=== PATIENT | male | born 1930 | race Caucasian/White ===

== ENCOUNTER → 2016-09-06 | Outpatient (CLI) | payer OTHER, MEDICARE | LOC: BHFA 10:45 | PROVIDERS: ATTEND Internal Medicine | DX: I25.10 Atherosclerotic heart disease of native coronary artery without angina pectoris (principal) ==

== ENCOUNTER → 2016-09-17 | Outpatient (CLI) | payer OTHER, MEDICARE | LOC: FIMAGING 10:08 | PROVIDERS: ATTEND Internal Medicine | DX: N18.3 Chronic kidney disease, stage 3 (moderate) (principal) ==

== ENCOUNTER 2017-07-04 18:34 | Inpatient (IN) | payer OTHER, MEDICARE ==
--- NOTE | 2017-07-04 18:59 | EDPHY ---
H & P Time Seen by Provider: 07/04/17 18:46 HPI/ROS: CHIEF COMPLAINT: "He was loopy" HISTORY OF PRESENT ILLNESS: Patient was brought in by his for being confused. Yesterday started with a cough and then was incontinent several times last night. He was confused and did not know where he was. Symptoms moderate. Remainder of history is limited because of the patient's poor recollection of the events of the last 24 hr although he denies any complaints currently. REVIEW OF SYSTEMS: Eye: no change in vision ENT: no sore throat Cardiac: no chest pain or syncope Pulmonary: Cough but not short of breath and no hemoptysis or sputum production Abdomen: no vomiting, diarrhea, or abdominal pain Musculoskeletal: no back pain Skin: no rash Neuro: no headache Constitutional: Fever per the : Urinary incontinence, chronic A comprehensive 10 point review of systems is otherwise not possible to obtain because of the patient's mental status. PAST MEDICAL HISTORY: Includes cardiac bypass, high cholesterol, hypertension, renal insufficiency. Social history: , here with his General Appearance: Alert and conversant, cooperative. Poor recent memory. Eyes: No scleral icterus. ENT, Mouth: Normal mucous membranes. Respiratory: Normal respiratory effort, breath sounds equal, lungs are clear to auscultation. Cardiovascular: Regular rate and rhythm. Gastrointestinal: Abdomen is soft and non tender. Neurological: Alert, face symmetric, normal motor and sensory in extremities. Patient knows his date and hold he is. He knows where he is. He does not remember the events very well of the last 24 hr. Follows commands. Skin: No urticaria or petechiae or purpura. Musculoskeletal: Neck supple, no meningeal signs. Psychiatric: Not agitated. Emergency Department course/MDM: Temp 37.9 degrees, high suspicion for UTI or pneumonia. Plan for blood cultures and lactate, urinalysis, chest x-ray. 1946: Chest x-ray personally interpreted shows left lower lobe infiltrate probable pneumonia. Results discussed with the patient and his , not hospitalized last 3 months , admission for IV antibiotics and has elevated INR but is on Coumadin so does not qualify as severe sepsis or septic shock. Smoking Status: Never smoked Constitutional: Initial Vital Signs Temperature (C) 37.9 C 07/04/17 18:41 Heart Rate 81 07/04/17 18:41 Respiratory Rate 18 07/04/17 18:41 Blood Pressure 172/75 H 07/04/17 18:41 O2 Sat (%) 92 07/04/17 18:41 O2 Delivery Mode Room Air Allergies/Adverse Reactions: No Known Allergies Allergy (Verified 07/04/17 18:40) Home Medications: Medication Instructions Recorded Atorvastatin Calcium [Lipitor 40 40 mg PO HS 12/22/08 mg (*)] Herbals/Supplements -Info Only 1 ea PO DAILY 05/23/14 Aspirin EC [Aspirin EC 81 mg (*)] 81 mg PO DAILY 11/29/14 Propylene Glycol/Peg 400/Pf 1 drop EACHEYE PRN PRN 11/29/14 [Systane 0.3-0.4% Eye Drops] Metoprolol Tartrate [Lopressor 25 25 mg PO BID #60 tab 11/30/14 mg (*)] Lisinopril [Zestril 10 mg (*)] 30 mg PO DAILY 12/23/15 Warfarin Sodium [Coumadin 5MG (*)] 5 mg PO SUMOTUWETHFR@20 12/23/15 Warfarin Sodium [Coumadin 5MG (*)] 2.5 mg PO SA@20 07/04/17 Medical Decision Making - Diagnostics Imaging Results: Imaging Impressions Chest X-Ray 07/04/17 19:09 Impression: Moderate left pleural effusion. Atelectasis or infiltrate left lower lobe. Other chronic findings, as above, are stable. Imaging: I viewed and interpreted images myself Differential Diagnosis: Differential diagnosis considered for altered mental status including but not limited to hypoglycemia, infectious process, electrolyte abnormality, head injury and intoxicants. Consult/Admit Bed Type: [place] [id number] - Data Points Laboratory Results: Laboratory Results 07/04/17 18:55 07/04/17 18:55 07/04/17 07/04/17 07/04/17 19:25 19:25 18:55 WBC RBC Hgb Hct MCV MCH MCHC RDW Plt Count MPV Neut % (Auto) Lymph % (Auto) [place] % (Auto) Eos % (Auto) Baso % (Auto) Nucleat RBC Rel Count Absolute Neuts (auto) Absolute Lymphs (auto) Absolute Monos (auto) Absolute Eos (auto) Absolute Basos (auto) Absolute Nucleated RBC Immature Gran % Immature Gran # PT INR APTT VBG Lactic Acid Sodium Potassium Chloride Carbon Dioxide Anion Gap BUN Creatinine Estimated GFR Glucose Calcium Total Bilirubin Lactate Dehydrogenase 542 IU/L IU/L (313-618) Urine Color YELLOW Urine Appearance CLEAR Urine pH 6.0 (5.0-7.5) Ur Specific [place] 1.013 (1.002-1.030) Urine Protein 2+ H (NEGATIVE) Urine Ketones NEGATIVE (NEGATIVE) Urine Blood 1+ H (NEGATIVE) Urine Nitrate NEGATIVE (NEGATIVE) Urine Bilirubin NEGATIVE (NEGATIVE) Urine Urobilinogen NEGATIVE EU EU (0.2-1.0) Ur Leukocyte Esterase NEGATIVE (NEGATIVE) Urine RBC 1-3 /hpf /hpf (0-3) Urine WBC 1-3 /hpf /hpf (0-3) Ur Epithelial Cells NONE SEEN /lpf /lpf (NONE-1+) Urine Mucus TRACE /lpf /lpf (NONE-1+) Urine Glucose NEGATIVE (NEGATIVE) Ur Strep pneumoniae Ag Pending 07/04/17 07/04/17 07/04/17 18:55 18:55 18:55 WBC 9.61 10^3/uL H 10^3/uL (3.80-9.50) RBC 4.89 10^6/uL 10^6/uL (4.40-6.38) Hgb 15.2 g/dL g/dL (13.7-17.5) Hct 44.8 % % (40.0-51.0) MCV 91.6 fL fL (81.5-99.8) MCH 31.1 pg pg (27.9-34.1) MCHC 33.9 g/dL g/dL (32.4-36.7) RDW 13.0 % % (11.5-15.2) Plt Count 182 10^3/uL 10^3/uL (150-400) MPV 9.1 fL fL (8.7-11.7) Neut % (Auto) 65.4 % % (39.3-74.2) Lymph % (Auto) 17.2 % % (15.0-45.0) [place] % (Auto) 13.8 % H % (4.5-13.0) Eos % (Auto) 2.6 % % (0.6-7.6) Baso % (Auto) 0.6 % % (0.3-1.7) Nucleat RBC Rel Count 0.0 % % (0.0-0.2) Absolute Neuts (auto) 6.28 10^3/uL 10^3/uL (1.70-6.50) Absolute Lymphs (auto) 1.65 10^3/uL 10^3/uL (1.00-3.00) Absolute Monos (auto) 1.33 10^3/uL H 10^3/uL (0.30-0.80) Absolute Eos (auto) 0.25 10^3/uL 10^3/uL (0.03-0.40) Absolute Basos (auto) 0.06 10^3/uL 10^3/uL (0.02-0.10) Absolute Nucleated RBC 0.00 10^3/uL 10^3/uL (0-0.01) Immature Gran % 0.4 % % (0.0-1.1) Immature Gran # 0.04 10^3/uL 10^3/uL (0.00-0.10) PT 20.6 SEC H SEC (12.0-15.0) INR 1.76 H (0.83-1.16) APTT 39.5 SEC H SEC (23.0-38.0) VBG Lactic Acid 1.1 mmol/L mmol/L (0.7-2.1) Sodium Potassium Chloride Carbon Dioxide Anion Gap BUN Creatinine Estimated GFR Glucose Calcium Total Bilirubin Lactate Dehydrogenase Urine Color Urine Appearance Urine pH Ur Specific [place] Urine Protein Urine Ketones Urine Blood Urine Nitrate Urine Bilirubin Urine Urobilinogen Ur Leukocyte Esterase Urine RBC Urine WBC Ur Epithelial Cells Urine Mucus Urine Glucose Ur Strep pneumoniae Ag 07/04/17 18:55 WBC RBC Hgb Hct MCV MCH MCHC RDW Plt Count MPV Neut % (Auto) Lymph % (Auto) [place] % (Auto) Eos % (Auto) Baso % (Auto) Nucleat RBC Rel Count Absolute Neuts (auto) Absolute Lymphs (auto) Absolute Monos (auto) Absolute Eos (auto) Absolute Basos (auto) Absolute Nucleated RBC Immature Gran % Immature Gran # PT INR APTT VBG Lactic Acid Sodium 139 mEq/L mEq/L (135-145) Potassium 3.7 mEq/L mEq/L (3.3-5.0) Chloride 100 mEq/L mEq/L (97-110) Carbon Dioxide 29 mEq/l mEq/l (22-31) Anion Gap 10 mEq/L mEq/L (8-16) BUN 14 mg/dL mg/dL (7-23) Creatinine 1.3 mg/dL mg/dL (0.7-1.3) Estimated GFR 52 Glucose 101 mg/dL H mg/dL (70-100) Calcium 8.9 mg/dL mg/dL (8.5-10.4) Total Bilirubin 0.9 mg/dL mg/dL (0.1-1.4) Lactate Dehydrogenase Urine Color Urine Appearance Urine pH Ur Specific [place] Urine Protein Urine Ketones Urine Blood Urine Nitrate Urine Bilirubin Urine Urobilinogen Ur Leukocyte Esterase Urine RBC Urine WBC Ur Epithelial Cells Urine Mucus Urine Glucose Ur Strep pneumoniae Ag Medications Given: Azithromycin 500 mg/ Sodium (Chloride) 255 mls @ 255 mls/hr IV DAILY GOLD PRN Reason: Protocol Stop: 08/04/17 08:59 Last Admin: 07/04/17 21:15 Dose: 255 mls Discontinued Medications Ceftriaxone Sodium/Dextrose (Rocephin 1 Gm (Premix)) 50 mls @ 100 mls/hr IV EDNOW ONE PRN Reason: Protocol Stop: 07/04/17 20:45 Last Admin: 07/04/17 20:47 Dose: 50 mls Sodium Chloride (Ns) 1,000 mls @ 0 mls/hr IV EDNOW ONE; Wide Open PRN Reason: Protocol Stop: 07/04/17 20:17 Last Admin: 07/04/17 20:47 Dose: 1,000 mls Departure - Departure Disposition: [facility] Inpatient Acute Clinical Impression: Pneumonia Qualifiers: Pneumonia type: due to unspecified organism Laterality: left Lung location: lower lobe of lung Qualified Code(s): J18.1 - Lobar pneumonia, unspecified organism Condition: Good
[2017-07-04 19:20] LABS: PLATELET COUNT 182 10^3/uL (150-400)
[2017-07-04 19:36] LABS: INR 1.76 (0.83-1.16); PROTIME(PATIENT) 20.6 SEC (12.0-15.0)
[2017-07-04] MEDS ORDERED: WARFARIN SODIUM 5 MG TAB PO SCH (20:00)
[2017-07-04] MEDS ORDERED: NS 1,000 ML IV ONE (20:16)
[2017-07-04] MEDS ORDERED: AZITHROMYCIN IV 500 MG in D5W 250 ML IV ONE (20:16)
[2017-07-04] MEDS ORDERED: ONDANSETRON 4 MG/2 ML VIAL IVP PRN (20:47)
[2017-07-04] MEDS ORDERED: ONDANSETRON DISINTEGRATING 4 MG TAB PO PRN (20:47)
[2017-07-04] MEDS ORDERED: ACETAMINOPHEN 325 MG TAB PO PRN (20:47)
[2017-07-04] MEDS ORDERED: NS W/ 20 KCl/L 1,000 ML IV SCH (21:00)
[2017-07-04] MEDS: AZITHROMYCIN IV 500 MG in NS 250 ML IV SCH (21:15)
[2017-07-04] MEDS ORDERED: PEG EACHEYE PRN ×2 (21:25→22:03)
[2017-07-04] MEDS ORDERED: PROPYLENE GLYCOL EACHEYE PRN ×2 (21:25→22:03)
[2017-07-04] MEDS ORDERED: [UNRECOGNIZED DRUG - OTHER] EACHEYE PRN ×2 (21:25→22:03)
--- NOTE | 2017-07-04 21:27 | PDGENHP ---
History and Physical - Chief Complaint Acute encephalopathy - History of Present Illness Primary marketing finance manager: Dr. Paul Arshad HPI: 86-year-old male presenting with acute encephalopathy characterized as confusion, disorientation with associated nonproductive cough, subjective fever , visible chills, urinary incontinence and generalized weakness. Onset of symptoms was approximately 24 hr ago and duration has been persistent thereafter. Majority the symptoms were reported by the patient's , as he has poor recognition and insight into them at this time. The patient reports he has otherwise been taking all of his home medications, is unclear whether the patient is physically able to complete his activities of daily living at this time. The patient was brought to the hospital by his , and the patient reports that he is aware that some of his confusion is somewhat improved after receiving IV antibiotics in the emergency department. History Information - Allergies/Home Medication List Allergies/Adverse Reactions: No Known Allergies Allergy (Verified 07/04/17 18:40) Home Medications: Atorvastatin Calcium [Lipitor 40 mg (*)] 40 mg PO HS 12/22/08 [Last Taken 21:00] Herbals/Supplements -Info Only 1 ea PO DAILY 05/23/14 [Last Taken 11/28/14] Aspirin EC [Aspirin EC 81 mg (*)] 81 mg PO DAILY 11/29/14 [Last Taken 07/04/17 10:00] Propylene Glycol/Peg 400/Pf [Systane 0.3-0.4% Eye Drops] 1 drop EACHEYE PRN PRN 11/29/14 [Last Taken Unknown] Lisinopril [Zestril 10 mg (*)] 30 mg PO DAILY 12/23/15 [Last Taken 07/04/17 10: 00] Warfarin Sodium [Coumadin 5MG (*)] 5 mg PO SUMOTUWETHFR@20 12/23/15 [Last Taken 07/03/17 20:00] Warfarin Sodium [Coumadin 5MG (*)] 2.5 mg PO SA@20 07/04/17 [Last Taken 07/02/17 ] I have personally reviewed and updated: family history, medical history, social history, surgical history - Past Medical History atrial fibrillation, coronary artery disease (Status post stents and CABG) Additional medical history: Obstructive sleep apnea with CPAP at night. Small- bowel obstruction. Hypertension. Hyperlipidemia. Chronic kidney disease stage 3 with baseline creatinine 1.3. Previous episodes of acute encephalopathy in setting of dehydration - Surgical History Additional surgical history: CABG May 2014. Lysis of adhesions - Family History Additional family history: No family history of neurologic disorders - Social History Smoking Status: Never smoked Alcohol Use: Rarely Drug Use: None Additional social history: Lives independently at home with Review of Systems Review of Systems: ROS: 10pt was reviewed & negative except for what was stated in HPI & below Constitutional: Reports: chills, fever, weakness Respiratory: Reports: cough Genitourinary: Reports: incontinence Neurological: Reports: other (Confusion, disorientation) Physical Exam Physical Exam: Temp Pulse Resp BP Pulse Ox 37.9 C 81 18 172/75 H 92 07/04/17 18:41 07/04/17 18:41 07/04/17 18:41 07/04/17 18:41 07/04/17 18:41 Constitutional: no apparent distress, appears nourished, not in pain Eyes: PERRL, EOMI, scleral injection Ears, Nose, Mouth, Throat: moist mucous membranes, hearing normal, ears appear normal, no oral mucosal ulcers Cardiovascular: systolic murmur (1/6 at apex), edema (Trace bilateral lower extremity edema), No irregularly irregular, No tachycardia Respiratory: reduced air movement (Left base), aegophony (Left base), No expiratory wheeze, No inspiratory crackles, No bronchial breath sounds, No respiratory distress, No rhonchi Gastrointestinal: normoactive bowel sounds, soft, non-tender abdomen, no palpable masses, No distension Skin: warm, No abrasion, No rash Neurologic: sensation intact bilaterally, CN II-XII Intact, other (Alert awake oriented x2, to person and time only), No weakness (Motor strength 5/5 bilateral lower extremities), No facial droop Psychiatric: not anxious, flat affect, other (Concentration 7/7 with some delayed cognition but appropriate), No agitated Lab Data & Imaging Review 07/04/17 18:55 07/04/17 18:55 WBC 9.61 10^3/uL (3.80-9.50) H 07/04/17 18:55 RBC 4.89 10^6/uL (4.40-6.38) 07/04/17 18:55 Hgb 15.2 g/dL (13.7-17.5) 07/04/17 18:55 Hct 44.8 % (40.0-51.0) 07/04/17 18:55 MCV 91.6 fL (81.5-99.8) 07/04/17 18:55 MCH 31.1 pg (27.9-34.1) 07/04/17 18:55 MCHC 33.9 g/dL (32.4-36.7) 07/04/17 18:55 RDW 13.0 % (11.5-15.2) 07/04/17 18:55 Plt Count 182 10^3/uL (150-400) 07/04/17 18:55 MPV 9.1 fL (8.7-11.7) 07/04/17 18:55 Neut % (Auto) 65.4 % (39.3-74.2) 07/04/17 18:55 Lymph % (Auto) 17.2 % (15.0-45.0) 07/04/17 18:55 [place] % (Auto) 13.8 % (4.5-13.0) H 07/04/17 18:55 Eos % (Auto) 2.6 % (0.6-7.6) 07/04/17 18:55 Baso % (Auto) 0.6 % (0.3-1.7) 07/04/17 18:55 Nucleat RBC Rel Count 0.0 % (0.0-0.2) 07/04/17 18:55 Absolute Neuts (auto) 6.28 10^3/uL (1.70-6.50) 07/04/17 18:55 Absolute Lymphs (auto) 1.65 10^3/uL (1.00-3.00) 07/04/17 18:55 Absolute Monos (auto) 1.33 10^3/uL (0.30-0.80) H 07/04/17 18:55 Absolute Eos (auto) 0.25 10^3/uL (0.03-0.40) 07/04/17 18:55 Absolute Basos (auto) 0.06 10^3/uL (0.02-0.10) 07/04/17 18:55 Absolute Nucleated RBC 0.00 10^3/uL (0-0.01) 07/04/17 18:55 Immature Gran % 0.4 % (0.0-1.1) 07/04/17 18:55 Immature Gran # 0.04 10^3/uL (0.00-0.10) 07/04/17 18:55 PT 20.6 SEC (12.0-15.0) H 07/04/17 18:55 INR 1.76 (0.83-1.16) H 07/04/17 18:55 APTT 39.5 SEC (23.0-38.0) H 07/04/17 18:55 VBG Lactic Acid 1.1 mmol/L (0.7-2.1) 07/04/17 18:55 Sodium 139 mEq/L (135-145) 07/04/17 18:55 Potassium 3.7 mEq/L (3.3-5.0) 07/04/17 18:55 Chloride 100 mEq/L (97-110) 07/04/17 18:55 Carbon Dioxide 29 mEq/l (22-31) 07/04/17 18:55 Anion Gap 10 mEq/L (8-16) 07/04/17 18:55 BUN 14 mg/dL (7-23) 07/04/17 18:55 Creatinine 1.3 mg/dL (0.7-1.3) 07/04/17 18:55 Estimated GFR 52 07/04/17 18:55 Glucose 101 mg/dL (70-100) H 07/04/17 18:55 Calcium 8.9 mg/dL (8.5-10.4) 07/04/17 18:55 Total Bilirubin 0.9 mg/dL (0.1-1.4) 07/04/17 18:55 Lactate Dehydrogenase 542 IU/L (313-618) 07/04/17 18:55 Urine Color YELLOW 07/04/17 19:25 Urine Appearance CLEAR 07/04/17 19:25 Urine pH 6.0 (5.0-7.5) 07/04/17 19:25 Ur Specific [place] 1.013 (1.002-1.030) 07/04/17 19:25 Urine Protein 2+ (NEGATIVE) H 07/04/17 19:25 Urine Ketones NEGATIVE (NEGATIVE) 07/04/17 19:25 Urine Blood 1+ (NEGATIVE) H 07/04/17 19:25 Urine Nitrate NEGATIVE (NEGATIVE) 07/04/17 19:25 Urine Bilirubin NEGATIVE (NEGATIVE) 07/04/17 19:25 Urine Urobilinogen NEGATIVE EU (0.2-1.0) 07/04/17 19:25 Ur Leukocyte Esterase NEGATIVE (NEGATIVE) 07/04/17 19:25 Urine RBC 1-3 /hpf (0-3) 07/04/17 19:25 Urine WBC 1-3 /hpf (0-3) 07/04/17 19:25 Ur Epithelial Cells NONE SEEN /lpf (NONE-1+) 07/04/17 19:25 Urine Mucus TRACE /lpf (NONE-1+) 07/04/17 19:25 Urine Glucose NEGATIVE (NEGATIVE) 07/04/17 19:25 Visualized and Interpreted Chest x-ray results: Yes Chest X-Ray results: other (Left lower lobe airspace disease and markedly effusion, new from chest x-ray performed 2 and half years ago) Assessment & Plan Assessment: 86-year-old male presenting with acute encephalopathy in the setting of suspected left lower lobe pneumonia and parapneumonic pleural effusion Plan: 1. Acute encephalopathy. Evidenced by global brain dysfunction characterized as confusion, disorientation, both of which are an acute change from his baseline and/or the reason that the patient's brought him to medical attention, most likely secondary to the toxic effects of infection -reviewed outside records including 12/24/2015 discharge summary by Susan Rubio , reports the patient experienced acute encephalopathy in the setting of dehydration, he underwent an MRI which demonstrated no structural brain disease and neurology was consulted who felt like his mental status changes were secondary to metabolic effects of dehydration -get CREW PERSON cognitive eval -gauge patient's ability to complete activities of daily living and determine whether he will require detention facility placement after resolution of his infection -melatonin at bedtime 2. Suspected left lower lobe pneumonia. Acute, new problem this provider, further workup indicated. Evidenced by new airspace disease on chest x-ray with subjective fever, chills, cough, mental status changes -discussed with Dr. Jarrod Pool in the emergency department, we agreed to empirically treat him for community-acquired pneumonia with IV ceftriaxone and azithromycin, continue -given that the patient has an acute left lower lobe pleural effusion, will get thoracentesis to evaluate for empyema versus parapneumonic effusion with diagnostic studies to be sent -sputum cultures, urine strep, blood cultures, procalcitonin level -if his thoracentesis demonstrates no evidence of infection and his effusion is more transudative, then would recommend repeating his echocardiogram, as his past echo demonstrates diastolic dysfunction, ejection fraction of 55-60% but he does have a known history of AFib and CAD and is at risk for CHF 3. Chronic kidney disease stage 3. Creatinine level currently at baseline, continue to monitor 4. Coronary artery disease. Chronic, continue home medications once reconciled -continue holding aspirin until after thoracentesis 5. Atrial fibrillation. Unclear type, continue home medications once reconciled -continue holding Coumadin until after thoracentesis -monitor daily INR Diet. Cardiac Prophylaxis. High risk patient, SCDs until resuming Coumadin Code. Full per patient, his is MD POA Disposition. Anticipated discharge uncertain this time, anticipated length stay is greater than 48 hr for reasonable medical necessity including new pneumonia with new pleural effusion requiring a diagnostic workup and drainage.
[2017-07-04] MEDS: METOPROLOL TARTRATE 25 MG TAB PO SCH (22:17)
[2017-07-05 05:27] LABS: PLATELET COUNT 149 10^3/uL (150-400)
--- NOTE | 2017-07-05 07:45 | PDMN ---
Medical Necessity Medical necessity: Pt meets IP criteria per MD; est los >2 mn for eval/tx of suspected pneumonia & pleural effusion w/acute encephalopathy & weakness; admit for diagnostic workup, drainage, further monitoring, IV abx, IVFs & therapies; hx AFIB on AC, CAD s/p stents & CABG, CKD, HTN & PEGGY; per H&P & order 07/04/17
[2017-07-05] MEDS ORDERED: Herbals/Supplements -Info Only PO SCH (09:00)
[2017-07-05 09:28] LABS: INR 1.98 (0.83-1.16); PROTIME(PATIENT) 22.6 SEC (12.0-15.0)
[2017-07-05] MEDS: METOPROLOL TARTRATE 25 MG TAB PO SCH ×2 (10:30→21:17)
[2017-07-05] MEDS: LISINOPRIL 10 MG TAB PO SCH (10:30)
[2017-07-05] MEDS ORDERED: LIDOCAINE 1% 300 MG/30 ML SDV ONE (11:07)
[2017-07-05] MEDS: AZITHROMYCIN IV 500 MG in NS 250 ML IV SCH (13:26)
--- NOTE | 2017-07-05 15:46 | HOSPPROG ---
Hospitalist Progress Note Assessment/Plan: 86 yo M with PMH of CAD s/p multiple stents and CABG admitted with sob/cough/ ams in setting of moderate pleural effusion # pleural effusion: exudative by Light's criteria and noted to have significant amount of old blood on thoracentesis, gram stain negative. No hx of trauma however patient is on chronic anticoagulation and was quite confused on arrival with hx of being very weak--will discuss if fall occurred further with . Pleural fluid culture and cytology pending. Will dc abx as this does not seem likely to be infectious, will get repeat CXR in am to eval for recurrence. # acute encephalopathy: this seems to have largely resolved overnight but patient still has memory issues and suspect a baseline component of mild dementia, likely worsened mental status yesterday related to above # CAD: with hx of multiple PCI in the past as well as CABG, followed by Dr. Arshad and recently underwent echo/stress test--this was notable for preserved EF of 64% and a small area of reversible ischemia versus artifact, on f/u this was not planned to be intervened upon # ckd: this is at baseline # p a fib: appears in SR by exam, continue metoprolol, holding warfarin given above # dispo: IP status, will likely be ready to dc in next 1-2 days Patient new to my care. Old records reviewed and summarized as above. Subjective: no significant overnight events, patient currently feeling well per his report, states he has a cough still Objective: Vital Signs Temp Pulse Resp BP Pulse Ox 37.3 C 63 17 135/65 H 90 L 07/05/17 07:56 07/05/17 07:56 07/05/17 07:56 07/05/17 07:56 07/05/17 07:56 Microbiology 07/05/17 11:45 Gram Stain - Final Thoracic Fluid - Aspirate 07/05/17 07:30 - Final Sputum, Expectorated Laboratory Results 07/05/17 04:25 07/05/17 04:25 07/04/17 07/05/17 07/06/17 05:59 05:59 05:59 Intake Total 956 Balance 956 PT 22.6 SEC (12.0-15.0) H 07/05/17 08:30 INR 1.98 (0.83-1.16) H 05/15/18 08:30 awake alert nad anicteric op clear rrr systolic murmur bibasilar rales r > l, normal wob, saturations in 90s on RA soft nt nd no cce warm dry well perfused oriented memory poor ICD10 Worksheet Patient Problems: Problems Problem Status Onset Pneumonia Acute Coronary arteriosclerosis Acute Dehydration Acute TIA (transient ischemic attack) Acute
--- NOTE | 2017-07-05 17:15 | ASMTCMCOM ---
CM Note CM Note Notes: Patient admitted with encephalopathy and URI symtoms. He's being treated for community-acquired PNA and will undergo thoracentesis to evaluate for empyema. He is followed by Dr Arshad. Patient lives at home with . He is normally independent. I spoke with them about home care; they do not think he'll need it but are amenable if we suggest it. Case Management will follow. Date Signed: 07/05/2017 11:07 AM Electronically Signed By:Isa Chi RN
[2017-07-05] MEDS ORDERED: hydrALAZINE 20 MG/ML VIAL IVP PRN (17:40)
[2017-07-05] MEDS: ATORVASTATIN CALCIUM 40 MG TAB PO SCH (21:18)
[2017-07-06 05:32] LABS: INR 1.91 (0.83-1.16)
[2017-07-06] MEDS: LISINOPRIL 10 MG TAB PO SCH (10:13)
[2017-07-06] MEDS: METOPROLOL TARTRATE 25 MG TAB PO SCH ×2 (10:14→20:17)
--- NOTE | 2017-07-06 11:52 | HOSPPROG ---
Hospitalist Progress Note Assessment/Plan: 86 yo M with PMH of CAD s/p multiple stents and CABG admitted with sob/cough/ ams in setting of moderate pleural effusion # pleural effusion: exudative by Light's criteria and noted to have significant amount of old blood on thoracentesis, gram stain negative. No hx of trauma. Will get chest CT to r/o other etiology for hemothorax. Pleural fluid culture and cytology pending. Repeat cxr today w/o recurrence, will get another in am. Holding warfarin. # acute encephalopathy: this seems to have largely resolved but patient still has memory issues and suspect a baseline component of mild dementia, likely worsened mental status yesterday related to above # pna: on cxr somewhat challenging to eval for pna, started initially on ctx/ azith w/cultures pending. CT with e/o likely pna, some viral component suspected given rhino/enterovirus on pcr. Will start levofloxacin for short course. # CAD: with hx of multiple PCI in the past as well as CABG, followed by Dr. Arshad and recently underwent echo/stress test--this was notable for preserved EF of 64% and a small area of reversible ischemia versus artifact, on f/u this was not planned to be intervened upon # ckd: this is at baseline # p a fib: appears in SR by exam, continue metoprolol, holding warfarin given above # dispo: IP status, will likely be ready to dc in next 1-2 days Subjective: no significant overnight events, patient continues to feel well Objective: Vital Signs Temp Pulse Resp BP Pulse Ox 37.2 C 62 17 158/75 H 91 L 07/06/17 07:38 07/06/17 07:38 07/06/17 07:38 07/06/17 07:38 07/06/17 07:38 Microbiology 07/05/17 11:45 Gram Stain - Final Thoracic Fluid - Aspirate 07/05/17 07:30 - Final Sputum, Expectorated 07/05/17 18:00 Respiratory Panel (PCR) - Final Nasal, Sinus - Anaerobic Tube/Swab Human Rhinovirus/Enterovirus Laboratory Results 07/05/17 04:25 07/05/17 04:25 07/05/17 07/06/17 07/07/17 05:59 05:59 05:59 Intake Total 956 Balance 956 PT 22.0 SEC (12.0-15.0) H 07/06/17 05:05 INR 1.91 (0.83-1.16) H 07/06/17 05:05 awake alert nad anicteric op clear rrr systolic murmur bibasilar rales r > l, normal wob, saturations in 90s on RA soft nt nd no cce warm dry well perfused oriented memory poor - Time Spent With Patient Time Spent with Patient: greater than 35 minutes Time Spent with Patient: Greater than 35 minutes spent on this patients care, greater than 50% of time spent counseling, educating, and coordinating care regarding the above mentioned plan. ICD10 Worksheet Patient Problems: Problems Problem Status Onset Pneumonia Acute Coronary arteriosclerosis Acute Dehydration Acute TIA (transient ischemic attack) Acute
[2017-07-06] MEDS ORDERED: IOPAMIDOL (ISOVUE 370) 100 ML BTL IV ONE (13:03)
[2017-07-06] MEDS: ATORVASTATIN CALCIUM 40 MG TAB PO SCH (20:17)
[2017-07-07 05:50] LABS: INR 1.68 (0.83-1.16); PROTIME(PATIENT) 19.9 SEC (12.0-15.0)
[2017-07-07 08:36] VITALS: BP 141/69
[2017-07-07] MEDS: LISINOPRIL 10 MG TAB PO SCH (08:43)
[2017-07-07] MEDS: METOPROLOL TARTRATE 25 MG TAB PO SCH (08:44)
--- NOTE | 2017-07-07 11:33 | PDDCSUM ---
Discharge Summary Discharge Summary: Dates of service 07/04-07/07/17 Procedures performed: thoracentesis, chest CT Consultations: none Hospital course by problem: 86 yo M with PMH of CAD s/p multiple stents and CABG admitted with sob/cough/ ams in setting of moderate pleural effusion # pleural effusion/hemothorax: noted to be a bloody effusion. Discussed with gen surg, given relatively mild to no sxs, chest tube or VATS would be unlikely to be beneficial in this 86 year old man. Etiology for hemothorax unclear--is on chronic AC, did have manipulation by chiropracter apparently that was a bit vigorous but no fall. Chest CT without e/o mass, no PE, no fractures. Drained by IR. Exudative effusion with cultures showing ngtd, cytology pending. Would recommend f/u chest CT in coming weeks to ensure resolution. Holding warfarin. # acute encephalopathy: resolved and back to baseline per patients , but patient still has memory issues and suspect a baseline component of mild dementia, likely worsened mental status yesterday related to above # pna: LLL and lingular infiltrate appreciated on CT c/w pna, does have rhino/ enterovirus on resp pcr with low procalcitonin so perhaps this is more of a viral pna picture, will tx with a short course with levaquin # CAD: with hx of multiple PCI in the past as well as CABG, followed by Dr. Arshad and recently underwent echo/stress test--this was notable for preserved EF of 64% and a small area of reversible ischemia versus artifact, on f/u this was not planned to be intervened upon # ckd: this is at baseline # p a fib: appears in SR by exam, continue metoprolol, holding warfarin given above, discussed at length with patient and his that holding warfarin for now is safer given hemothorax, decision to resume warfarin will be deferred to pcp/cardiology but with Chads-vasc of 3, may be safer at this point to dc warfarin permanently and continue only aspirin Items pending at time of discharge: --cytology from pleural effusion --final micro data from thoracentesis Recommend repeat chest ct in 2-3 weeks f/u with PCP > 35 min spent on dc more than half in counseling patient and his regarding f/u care plans
[2017-07-09] MEDS ORDERED: WARFARIN SODIUM 5 MG TAB PO SCH (20:00)
== END 2017-07-07 13:05 | disposition home or self-care (01) | DRG 193 ==
LOC: F1N 21:58
PROVIDERS: ADMIT Internal Medicine; ATTEND Internal Medicine
PROC: 0W9B3ZX Drainage of Left Pleural Cavity, Percutaneous Approach, Diagnostic (ICD-10-PCS; principal; 2017-07-04)
DX: J18.9 Pneumonia, unspecified organism (principal); G93.40 Encephalopathy, unspecified; J91.8 Pleural effusion in other conditions classified elsewhere; J94.2 Hemothorax; I12.9 Hypertensive chronic kidney disease with stage 1 through stage 4 chronic kidney disease, or unspecified chronic kidney disease; N18.3 Chronic kidney disease, stage 3 (moderate); I25.10 Atherosclerotic heart disease of native coronary artery without angina pectoris; I48.0 Paroxysmal atrial fibrillation; Z79.01 Long term (current) use of anticoagulants; Z95.5 Presence of coronary angioplasty implant and graft; Z95.1 Presence of aortocoronary bypass graft
CPT/HCPCS: 92523-GN; 92610-GN; 97116-GP; 97161-GP; 97165-GO; 97530-GP; G8978-GP-CJ; G8979-GP-CI; G8980-GP-CI; G8987-GO-CI; G8988-GO-CI; G8989-GO-CI; G8996-GN-CH; G8997-GN-CH; G8998-GN-CH; G9165-GN-CK; G9166-GN-CI; J0360; J0456; J0696; Q9967

== ENCOUNTER → 2017-08-18 | Outpatient (CLI) | payer OTHER, MEDICARE | LOC: FIMAGING 12:38 | PROVIDERS: ATTEND Internal Medicine Pulmonary Disease | DX: J98.6 Disorders of diaphragm (principal); J90 Pleural effusion, not elsewhere classified ==

== ENCOUNTER → 2017-11-22 | Outpatient (CLI) | payer OTHER, MEDICARE | LOC: BHFA 09:00 | PROVIDERS: ATTEND Internal Medicine Cardiovascular Disease | DX: I48.91 Unspecified atrial fibrillation (principal); I25.810 Atherosclerosis of coronary artery bypass graft(s) without angina pectoris; I10 Essential (primary) hypertension; E78.2 Mixed hyperlipidemia ==

== ENCOUNTER 2018-01-27 00:24 | Observation (INO) | payer OTHER, MEDICARE ==
[2018-01-27] MEDS ORDERED: NS 1,000 ML IV ONE (00:33)
--- NOTE | 2018-01-27 00:41 | EDPHY ---
H & P Stated Complaint: difficulty speaking x2 mins then went away, poss TIA Time Seen by Provider: 01/27/18 00:41 HPI/ROS: HPI CHIEF COMPLAINT: Trouble with speech. Now resolved. HISTORY OF PRESENT ILLNESS: This is 87-year-old male, history of coronary disease, CABG, hemothorax, pneumonia, chronic kidney disease, AFib, presents to the emergency room for trouble with speech. This occurred approximately an hour and half ago. He was in the kitchen drying dishes and was trying to speak with his who states that he had trouble getting words out. This lasted approximately 5 min. The symptoms have completely resolved he denies any other focal deficits. Denies focal weakness numbness or tingling. Denies headache, denies chest pain or shortness of breath. He did speak clearly at this time. says he is at his baseline. Of note is by slight is somewhat slow to respond and when he starts seconds he does not completely finish it his tells me this completely normal. Past Medical History: Coronary artery disease,, CKD, pneumonia, hemothorax, AFib Past Surgical History: CABG Social History: Denies drugs alcohol tobacco. at bedside. Lives locally. Family History: Noncontributory ROS REVIEW OF SYSTEMS: 10 Systems were reviewed and negative with the exception of the elements mentioned in the history of present illness. Exam Constitutional nontoxic triage nursing summary reviewed, vital signs reviewed, awake/alert. Patient noted be hypertensive upon arrival. Eyes normal conjunctivae and sclera, EOMI, PERRLA. HENT normal inspection, atraumatic, moist mucus membranes, no epistaxis, neck supple/ no meningismus, no raccoon eyes. Respiratory clear to auscultation bilaterally, normal breath sounds, no respiratory distress, no wheezing. Cardiovascular rate normal, regular rhythm, no murmur, no edema, distal pulses normal. Gastrointestinal soft, non-tender, no rebound, no guarding, normal bowel sounds, no distension, no pulsatile mass. Genitourinary no CVA tenderness. Musculoskeletal no midline vertebral tenderness, full range of motion, no calf swelling, no tenderness of extremities, no meningismus, good pulses, neurovascularly intact. Skin pink, warm, & dry, no rash, skin atraumatic. Neurologic awake, alert and oriented x 3, AAOx3, moves all 4 extremities equally, motor intact, sensory intact, CN II-XII intact, normal cerebellar, normal vision, normal speech. Only abnormality on neurological exam is when he starts seconds he midway stops it and asked her usually to finish it. reports this is normal. Denies other neurological complaints. Psychiatric normal mood/affect. Heme/Lymph/Immune no lymphadenopathy. Differential Diagnosis: Includes but is not limited to in a particular order CVA, intracranial bleed, TIA, infection, pneumonia Medical Decision Making: Plan for this patient IV establishment, EKG, blood draw, CT scan head without contrast, chest x-ray urinalysis and re-evaluate. Re-evaluation: EKG interpretation by me on record in [facility] system. Impression: Sinus rhythm rate of 60, DE interval 238 right bundle-branch block present. Similar to previous EKG dated 12/22/2015. No acute ischemic changes appreciated. CT scan head without contrast negative for acute bleed or stroke. Called to me by Dr. Dooley. Plan for this patient 2:00 a.m.. Resting comfortably. Neurological exam at baseline. Plan will be for admission for TIA. No neurological deficit at this time. Life updated as well as patient They are comfortable with admission. Spoke with Dr. Sutton. Agrees for Admission. Source: Patient - Personal History Current Tetanus Diphtheria and Acellular Pertussis (TDAP): Yes - Medical/Surgical History Hx Asthma: No Hx Chronic Respiratory Disease: No Hx Diabetes: No Hx Cardiac Disease: Yes Hx Renal Disease: Yes Hx Cirrhosis: No Hx Alcoholism: No Hx HIV/AIDS: No Hx Splenectomy or Spleen Trauma: No Other PMH: 6 stents 2005, hernia repair with sbo, high chol, htn, cri, melvina, cabg may 2014 - Social History Smoking Status: Never smoked Constitutional: Initial Vital Signs Temperature (C) 36.7 C 01/27/18 00:26 Heart Rate 62 01/27/18 00:26 Respiratory Rate 18 01/27/18 00:26 Blood Pressure 200/70 H 01/27/18 00:26 O2 Sat (%) 95 01/27/18 00:26 O2 Delivery Mode Nasal Cannula O2 (L/minute) 2 Allergies/Adverse Reactions: No Known Allergies Allergy (Verified 01/27/18 00:29) Home Medications: Medication Instructions Recorded Atorvastatin Calcium [Lipitor 40 40 mg PO HS 12/22/08 mg (*)] Aspirin EC [Aspirin EC 81 mg (*)] 81 mg PO DAILY 11/29/14 Propylene Glycol/Peg 400/Pf 1 drop EACHEYE PRN PRN 11/29/14 [Systane 0.3-0.4% Eye Drops] Metoprolol Tartrate [Lopressor 25 25 mg PO BID #60 tab 11/30/14 mg (*)] Lisinopril [Zestril 10 mg (*)] 30 mg PO DAILY 12/23/15 Medical Decision Making - Data Points Laboratory Results: Laboratory Results 01/27/18 00:55 01/27/18 00:55 Medications Given: Aspirin (Aspirin) 81 mg PO DAILY GOLD Stop: 07/26/18 08:59 Last Admin: 01/27/18 08:45 Dose: 81 mg Atorvastatin Calcium (Lipitor) 40 mg PO HS GOLD Stop: 07/26/18 20:59 Last Admin: 01/27/18 20:09 Dose: 40 mg Metoprolol Tartrate (Lopressor) 25 mg PO BID GOLD Stop: 07/26/18 20:59 Last Admin: 01/27/18 20:10 Dose: 25 mg Discontinued Medications Sodium Chloride (Ns) 1,000 mls @ 0 mls/hr IV EDNOW ONE; Wide Open PRN Reason: Protocol Stop: 01/27/18 00:34 Last Admin: 01/27/18 01:29 Dose: 250 mls Metoprolol Tartrate (Lopressor) 25 mg PO DAILY ONE Stop: 01/27/18 08:52 Last Admin: 01/27/18 09:12 Dose: 25 mg Point of Care Test Results: Chemistry 01/27/18 01:27 POC Troponin I 0.02 ng/mL ng/mL (0.00-0.08) Departure - Departure Disposition: [facility] Inpatient Acute Clinical Impression: TIA (transient ischemic attack) HTN (hypertension) Qualifiers: Hypertension type: unspecified Qualified Code(s): I10 - Essential (primary) hypertension Condition: Fair
[2018-01-27 01:10] LABS: PLATELET COUNT 149 10^3/uL (150-400)
[2018-01-27 01:18] LABS: INR 1.01 (0.83-1.16); PROTIME(PATIENT) 13.5 SEC (12.0-15.0)
[2018-01-27 01:20] LABS: CREATINE KINASE 130 IU/L (0-224)
[2018-01-27 05:30] LABS: INR 1.05 (0.83-1.16); PROTIME(PATIENT) 13.9 SEC (12.0-15.0)
--- NOTE | 2018-01-27 07:20 | GHP ---
DATE OF ADMISSION: 01/27/2018 PRIMARY MOLDING ASSOCIATE: Dr. Arshad. SOURCE: The patient provides history, is a fair historian. His is at bedside and supplements d etails and is a good historian. EMR was reviewed, and case discussed with ED provider. CHIEF COMPLAINT: Aphasia. HISTORY OF PRESENT ILLNESS: This is a very pleasant 87-year-old gentleman with a past medical histor y significant for coronary artery disease with history of stenting, followed by a 2 vessel CABG, rece nt admission in June for a hemothorax, multiple episodes of encephalopathy due to dehydration, hyperli pidemia, hypertension, paroxysmal atrial fibrillation, previously on Coumadin, which was discontinued , PEGGY on CPAP, small bowel obstruction, CKD stage 3 with a baseline creatinine of 1.3, diastolic dysf unction on echocardiograms, and mild valvular regurg, multiple valves. He presents emergency departm ent today with his after sudden onset and rapid resolution of aphasia. reports that hesham sheridan was in his usual state of health. He had just woken up from a nap and came downstairs from their t op level to the kitchen assist her drying the dishes. The patient appeared to be awake, alert, and i nteractive at his baseline, when he suddenly started pointing to his mouth and had trouble making any sense of words per the . The patient's symptoms lasted less than 10 minutes, maybe up to 5. Th e symptoms rapidly resolved. He had no facial drooping. No focal deficits reported. The patient de nies at any point that he had any headache, changes in vision, numbness, tingling, or heaviness in hi s extremities. was concerned that patient may have had a moment of imbalance but he rapidly cor rected himself, and there was no leaning or fall. Patient's reports that he has been having increasing episodes of hypoxia noted on the CPAP up to 23 per evening, where previously he may have just had 4-6. The patient was seen by Sleep Medicine w ho recommended patient follow up with Cardiology. This was scheduled for later this morning for cons ideration of a repeat echocardiogram. The patient denies any increased dyspnea on exertion from base line. He has chronic lower extremity edema, which has not significantly changed. The patient does n ormally sleep on multiple pillows on an angle due to having to wear the CPAP, but denies any increase d dyspnea with sleeping. No orthopnea or PND reported. REVIEW OF SYSTEMS: Ten systems reviewed, negative except as noted above. ALLERGIES: No known drug allergies. HOME MEDICATIONS: As available per the EMR: Systane eye drops p.r.n., metoprolol 25 mg p.o. twice d aily, lisinopril 30 mg p.o. daily, atorvastatin 40 mg at h.s., aspirin 81 mg p.o. daily. PAST MEDICAL HISTORY: Significant for CAD with history of stenting and subsequently 2 vessel CABG, r ecent admission in June, which was initially considered to be a pneumonia, but found to be a hemothora x related to bleeding from Coumadin, which patient is no longer on for history of paroxysmal atrial f ibrillation, hyperlipidemia, hypertension, PEGGY on CPAP, small bowel obstruction, CKD stage 3, baselin e creatinine 1.3, diastolic dysfunction. PAST SURGICAL HISTORY: Significant for CABG 2 vessel, cardiac cath, multiple stents, exploratory lap arotomy with lysis of adhesions. FAMILY HISTORY: Negative for neurologic deficits. SOCIAL HISTORY: Patient is , lives with his . He does not smoke or utilize any illicit d rugs or marijuana. He drinks rarely any alcohol. CODE STATUS: Discussed extensively with the patient and his . The patient does appear to have s ome difficulties comprehending during the discussion, and who is assigned as the medical power o f tax associate attorney was part of the discussion. The patient initially thought he did not want any resuscitati on, but would be amenable to some mild attempts including defibrillation and IV medications. However , after further discussion, patient does not want to be intubated at any point, but is amenable to fu ll cardiac resuscitation. PHYSICAL EXAMINATION: VITAL SIGNS: Upon arrival to the emergency department, blood pressure is 200/ 70, heart rate is 62, respiratory rate 18, O2 saturation 95% on room air, temperature 36.7. Current vital signs, blood pressure 187/78, heart rate 59, respiratory rate 16, O2 saturation 99% on 2 L by n tra cannula, temperature 36.3. GENERAL: No acute distress. Very pleasant, elderly, frail-appearin g gentleman is lying quietly in bed. His is at bedside. He is in no acute distress. Pleasant, awake, and interactive. HEAD: Normocephalic, atraumatic. EYES: Extraocular muscles are grossly i ntact. Pupils equal, round, symmetric. No scleral icterus, conjunctival injection. ENT: Mucous me mbranes appear moist. No nasal discharge. Dentition in fair condition. NECK: Supple. Trachea mid line. CV: Patient with slightly distant heart sounds diffusely. Regular rhythm. Bradycardic. ited exam due to the distant heart sounds, but I do not appreciate any murmurs currently. RESPIRATOR Y: Unlabored breathing. Lungs with diminished breath sounds at the bases, but no wheezes, rales, or rhonchi. ABDOMEN: Obese, soft, nontender to palpation. No rebound, guarding, or masses appreciate d. Nondistended abdomen. : No suprapubic tenderness to palpation. No Zimmerman catheter in place. EXTREMITIES: Patient with trace to 1+ pitting edema bilaterally to his mid lower extremities. His f eet are also edematous. The patient has 1+ pedal pulses bilaterally, somewhat limited due to edema. NEURO: Grossly nonfocal. Moves all extremities. Strength with generalized deconditioning, weaknes s, but otherwise symmetric. PSYCH: Patient's affect is slightly flat, but he is pleasant and mitchel ative. He does have some slowed and thoughtful-appearing responses to questions. During interview, an extensive discussion regarding code status, the patient does appear to have some difficulties comp rehending what is being asked of him. notes that he may have some difficulties comprehending. Does not note that this is an acute change from his baseline. WBCs 8.24, H and H are 15.3, 45.3, MCV of 93.4, platelet count is 149, neutrophils 51.8. PT is 13.5, INR is 1.01, PTT is 28.0. Sodium 143, potassium 4.3, chloride 110, CO2 25, anion gap of 8, BUN 22, creatinine is 1.7, GFR 38, glucose is 103, calcium 9.2, magnesium 2.3, total bilirubin 0.8, ALT 31, A ST 52, alkaline phosphatase 51. CK is 130, CK-MB is 2.30. Troponin 0.02. Total protein 7.12. BTNP is 332. Albumin 4.0. There is some hemolysis noted on the specimen. Chest x-ray: Image and report was reviewed myself. Postsurgical changes with sternotomy wires. Sta ble mediastinal and cardiac silhouette. Mild hypoventilatory features, bibasilar subsegmental atelec tasis. Normal pulmonary vasculature. Some residual blunting left lateral costophrenic angle consist ent with pleural fluid or pleural scarring. EKG: Reviewed myself shows normal sinus rhythm in the 60s with a prolonged AR interval 0.23 and QTc of 456. 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 This is unchanged from previous EKGs in 2016. CT of the head showing senescent features with no acute intracranial abnormality, advanced cerebral c ortical atrophy, periventricular diminished attenuation consistent with chronic microvascular ischemi c gliosis, atherosclerotic calcified plaque in left vertebral artery. ASSESSMENT AND PLAN: Pleasant 87-year-old gentleman with a significant cardiac history for coronary artery disease status post coronary artery bypass graft, hypertension, hyperlipidemia, paroxysmal atr ial fibrillation, previously on Coumadin, discontinued after a hemothorax, obstructive sleep apnea on continuous positive airway pressure, chronic kidney disease stage 3, and diastolic dysfunction, who presents to the emergency department with a very short-lived episode of aphasia. 1. Aphagia. Patient without any additional focal deficits reported or currently on exam with NIH sc ore at 0. Patient was given intravenous fluid hydration given a previous history of encephalopathy d ue to dehydration and acute illness. notes that his symptoms today were acutely different than previously, where he would be a little bit more confused, but still be able to communicate. Discusse d with the patient and his additional workup is needed given his multiple risk factors for trans ient ischemic attack and cerebrovascular accident. We will go ahead with MRI of the brain. The sudhir ent previously with carotid ultrasounds in 2016 that did not note any severe stenosis. Echocardiogra m with a bubble study will be ordered, although less likely to be a patent foramen ovale at this age previous transient ischemic attacks. I do not see this was completed previously on availa ble echocardiograms for review. Neurology consultation has been requested for additional recommendat ions this morning. We will continue patient's daily aspirin. 2. Chronic medical issues. 3. Benign essential hypertension. Patient's blood pressures are noted to be elevated upon arrival t o the emergency department. The patient did take his evening dose of metoprolol. He does continue t o have intermittently elevated blood pressures above 180. He does not have any current symptoms. Ap hagia could be related to hypertensive crises, but currently patient appears to be improved. Will co ntinue his home metoprolol and also add as need hydralazine. The patient with acute on chronic kidne y insufficiency, and he has received some intravenous fluid hydration. Will encourage oral intake an d supplementation. Repeat a BMP before restarting patient's RAYSA inhibitor. 4. Hyperlipidemia. Check a lipid panel. Continue patient's statin. 5. History of paroxysmal atrial fibrillation on Coumadin, currently in normal sinus rhythm. Continu e his beta charly, not on anticoagulation due to history of hemothorax. 6. Obstructive sleep apnea on continuous positive airway pressure. If patient should stay an additi onal day, we will request patient's bring to the hospital or will provide patient with supplemen tation. Given his multiple episodes of increasing apneic episodes, also echocardiogram ordered for p segundo's aphasia will be helpful for additional information. 7. Diastolic dysfunction, congestive heart failure without exacerbation. Patient's edema is current ly stable and chronic. No worsening respiratory symptoms including patient denies orthopnea or parox ysmal nocturnal dyspnea. 8. Chronic kidney disease, stage 3, acute on chronic. As noted above intravenous fluids and repeat BMP. 9. Fluid, electrolyte, nutrition status post intravenous fluid in the emergency department. Encoura ge oral intake as patient has passed his swallow evaluation. Electrolyte replacement, monitoring as needed. Cardiac diet has been ordered. 10. Prophylaxis. Sequential compression devices, holding anticoagulation secondary to history of bl eeding. Continue aspirin and sequential compression devices as tolerated. 11. COR is limited. No intubation but patient amenable to full cardiac resuscitation. DISPOSITION: Patient admitted to observation status on the neurology floor for close neuro assessmen t and additional studies as noted above. /[id number]/MODL
--- NOTE | 2018-01-27 08:01 | CPEKG ---
Test Reason : OPEN Blood Pressure : / mmHG Vent. Rate : 060 BPM Atrial Rate : 060 BPM P-R Int : 238 ms QRS Dur : 143 ms QT Int : 456 ms P-R-T Axes : -41 -80 041 degrees QTc Int : 456 ms Sinus rhythm Prolonged MO interval RBBB and LAFB Confirmed by Hossein Perez ([id number]) on 01/27/2018 8:00:38 AM Referred By: Confirmed By:Hossein Perez
[2018-01-27] MEDS: ASPIRIN 81 MG CHEWABLE TAB PO SCH (08:45)
[2018-01-27] MEDS ORDERED: METOPROLOL TARTRATE 25 MG TAB PO ONE (08:51)
--- NOTE | 2018-01-27 10:19 | NEUROPROG ---
Assessment: [id number] - Neurology Consult: - CC: Dr. Ying Sutton consulted neurology for possible TIA. Results placed in EMR for her review. - HPI: Pt with prior multiple episodes of encephalopathy from dehydration in the past presented to [facility] ER on 01/26/18 for brief episode of speech difficulty. His reported he had just woken from a nap when he had 5-10 minutes difficulty talking. He had a hemothorax in June 2017 while on coumadin for afib so it was stopped. Pt was on aspirin 81 mg qd and Lipitor 40 mg qd at time of admission. I initially saw the patient on 01/27/18. Neurologic exam showed no focal deficits with NIH SS 0. Pt undergoing stroke evaluation. - PMHx: CAD w/stenting, CABG, PNA, hemothorax, HLD, HTN, PEGGY on CPAP, SBO, CKD - SHx: FHx: NC - ROS: Pt denied acute fever, total vision loss, active severe chest pain, respiratory failure, total body severe rash, total bowel/bladder incontinence, psychosis, active seizures, or active bleeding - O: VS reviewed General: Alert Eyes: Fundoscopic exam not able to visualize optic disks CV: Heart RRR, no murmur, no carotid bruit Lungs: Clear to auscultation bilaterally, no rhonchi or rales Neuro: - Mental: . Oriented x person/place/date . concentration appears normal . speech fluency/comprehension normal . memory appears normal . fund of knowledge appear intact - Cranial Nerves: . II: PERRL, VFFTC . III/IV/: EOMI, no nystagmus, normal smooth pursuits, no Ptosis . V: facial sensation intact to LT . VII: face symmetric to eye closure and smile . VIII: hearing intact to conversation . IX/X: uvula raises symmetrically . XI: SCM 5/5 B/L strength . XII: tongue protrudes midline w/nl strength - Motor: . Tone: normal tone in all 4 extremity . Strength: no pronator drift, strength 5-/5 throughout consistent with advanced age, no focal weakness - Reflexes: B/L bic 2/4 - Sensory: all 4 extremity intact to light touch - Coord: [id number] wnl, HALIE wnl, [id number] wnl - Gait: deferred - NIH SS 0 - Labs: 01/27/18- CBC Plt 149L, Coags wnl, CMP Cr 1.7H Gluc 150, LDL 54L - Rads: 01/27/18- Head CT: Senescent features, with no acute intracranial abnormality identified on this unenhanced CT evaluation. (I personally visualized the images on 01/27/18) - Assessment: 1. TIA causing brief aphasia for 5-10 minutes on 01/26/18: Nonfocal neurologic exam on 01/27/18 with NIH SS 0. Pt with history of possible Afib but stopped anticoagulation in July 08 due to hemothorax. On aspirin 81 mg qd on day of this event. - Plan: - Continue aspirin 81 mg qd for stroke prevention - add plavix 75 mg qd for stroke prevention (pt failed aspirin alone (TIA on this) and failed anticoagulation (hemothorax on coumadin in July 08)), family counseled this increases bleed risk but they accepted risk - Blood pressure goal < 220/120 x 48 hours - LDL goal < 70 (54), continue statin - H1AC goal < 7.0 - PT/OT/Speech to determine rehab needs - TTE - Brain MRI/MRA - Carotid U/S - F/U in neurology clinic 1-5 weeks after hospital discharge Objective: Vital Signs Temp Pulse Resp BP Pulse Ox 36.2 C 58 L 17 178/76 H 96 01/27/18 07:18 01/27/18 09:12 01/27/18 07:18 01/27/18 09:12 01/27/18 07:18 01/26/18 01/27/18 01/28/18 05:59 05:59 05:59 Intake Total 750 Balance 750 PT 13.9 SEC (12.0-15.0) 01/27/18 05:00 INR 1.05 (0.83-1.16) 01/27/18 05:00 Allergies/Adverse Reactions: No Known Allergies Allergy (Verified 01/27/18 00:29)
--- NOTE | 2018-01-27 10:58 | ASMTCMCOM ---
CM Note CM Note Notes: CM reviewed pt's chart for d/c planning. Pt is an 87y/o male who presented to the ED following a 5 minute episode where he struggled to find his words. Pt has a significant medical hx for CAD, hemothorax, CKD, AFIB and sleep apnea. Pt's reports that at baseline pt is slow to respond and doesn't always finish his sentences. He will receive a close neuro assessment and additional studies. PT/OT have been ordered. CM will follow for recommendations. D/C Plan: TBD Date Signed: 01/27/2018 10:58 AM Electronically Signed By:Radha Laguna
[2018-01-27] MEDS ORDERED: PEG EACHEYE PRN (16:43)
[2018-01-27] MEDS ORDERED: PROPYLENE GLYCOL EACHEYE PRN (16:43)
--- NOTE | 2018-01-27 16:48 | HOSPPROG ---
Hospitalist Progress Note Assessment/Plan: 87y male with aphasia. 1. TIA causing brief aphasia for 5-10 minutes on 01/26/18 Pt with history of possible Afib but stopped anticoagulation in July 08 due to hemothorax. On aspirin 81 mg qd on day of this event. 2. HX CAD cards consult D/W Dr Jeff Plan: - Continue aspirin 81 mg qd for stroke prevention - add plavix 75 mg qd for stroke prevention (pt failed aspirin alone (TIA on this) and failed anticoagulation (hemothorax on coumadin in July 08) - Blood pressure goal < 220/120 x 48 hours - LDL goal < 70 (54), continue statin - H1AC goal < 7.0 - PT/OT/Speech to determine rehab needs - TTE - Brain MRI/MRA - Carotid U/S - F/U in neurology clinic 1-5 weeks after hospital discharge Will need to stay in hospital setting to finish workup and monitoring. Subjective: Feeling better. No pain. Objective: Vital Signs Temp Pulse Resp BP Pulse Ox 36.3 C 59 L 21 H 153/69 H 90 L 01/27/18 16:02 01/27/18 16:02 01/27/18 16:02 01/27/18 16:02 01/27/18 16:02 01/26/18 01/27/18 01/28/18 05:59 05:59 05:59 Intake Total 750 Balance 750 PT 13.9 SEC (12.0-15.0) 01/27/18 05:00 INR 1.05 (0.83-1.16) 01/27/18 05:00 - Physical Exam Constitutional: no apparent distress, appears nourished Eyes: PERRL, anicteric sclera Ears, Nose, Mouth, Throat: moist mucous membranes, hearing normal Cardiovascular: No JVD, No edema Respiratory: no respiratory distress, reduced air movement Gastrointestinal: No tenderness, No ascites Skin: warm, normal color Musculoskeletal: normal joint ROM, generalized weakness Neurologic: AAOx3 Psychiatric: interacting appropriately, not anxious, not encephalopathic ICD10 Worksheet Patient Problems: Problems Problem Status Onset TIA (transient ischemic attack) Acute HTN (hypertension) Acute chronic disease mgmt/transitional care Acute Coronary arteriosclerosis Acute TIA (transient ischemic attack) Acute Dehydration Acute Pneumonia Acute
--- NOTE | 2018-01-27 18:16 | ECHO ---
[email or web address] [address] [address] Main: [phone] Fax: Transthoracic Echocardiogram Name: THERESE TENA MR#: [id number] Study Date: 01/27/2018 Study Time: 11:48 AM Date of : 1930 Age: 87 year(s) Height: 172.7 cm (68 in.) Weight: 89.81 kg (198 lb.) BSA: 2.04 m2 Gender: Male Examination: Echo Indication: Apnea, Coronary artery disease, Edema, Hx of CABG Image Quality: Contrast: Requested by: Ying Sutton BP: 169 mmHg/77 mmHg Heart Rate: Rhythm: Normal sinus rhythm Indication: Apnea, Coronary artery disease, Edema, Hx of CABG Procedure Staff Sales Clerk Supervisor: Edward Weber RDCS Reading Physician: Marcelino Jeff MD Requesting Provider: Conclusions: Normal size left ventricle. No LV hypertrophy. Normal global systolic LV function. EF is 75 %. Grade 1 diastolic dysfunction (abnormal relaxation). There is basilar to mid inferior hypokineisis.. Mild mitral valve leaflet calcification is present. Trivial mitral valve regurgitation. The aortic valve is tri-leaflet. Mild aortic cusp calcification is noted. Mild aortic valve regurgitation is present. The tricuspid valve is normal in appearance and function. The pulmonic valve is normal in appearance and function. No pericardial effusion. Measurements: Chambers Valvular Assessment AV/MV Valvular Assessment TV/PV Normal Normal Normal Name Value Range Name Value Range Name Value Range Ao Kylah (MM): 3.3 cm (2.2 cm-3.7 AV Vmax: 2.10 m/s (1 m/s-1.7 PV Vmax: 0.80 m/s (0.6 m/s-0.9 cm) m/s) m/s) IVSd (2D): 0.9 cm (0.6 cm-1.1 AV maxP mmHg ( - ) PV PGmax: 3 mmHg ( - ) cm) LVOT Vmax: 0.83 m/s (0.7 m/s-1.1 LVDd (2D): 4.6 cm (4.2 cm-5.9 m/s) cm) AR (PHT): 611 ms ( - ) LVDs (2D): 2.6 cm (2.1 cm-4 MV E Vmax: 0.58 m/s ( - ) cm) MV A Vmax: 0.75 m/s ( - ) LVPWd (2D): 0.9 cm (0.6 cm-1 MV E/A: 0.77 ( - ) cm) Patient: THERESE TENA Study Date: 01/27/2018 Page 1 of 2 11:48 AM LVEF (2D): 75 (>=54 %) Continued Measurements: Chambers Valvular Assessment AV/MV Name Value Name Value LADs Lon.2 cm MV E' Septal: 0.03 m/s LA Area: 19.4 cm2 MV E/E' Septal: 18.10 LA Volume: 62 ml MV E/E' Lateral: 10.10 LA Volume Index: 30.4 ml/m2 AR Vmax: 4.06 cm/s AR VTI: 237.0 cm Findings: Left Ventricle: Normal size left ventricle. No LV hypertrophy. Normal global systolic LV function. EF is 75 %. Grade 1 diastolic dysfunction (abnormal relaxation). There is basilar to mid inferior hypokineisis.. Right Ventricle: Normal size right ventricle. Normal RV function. Left Atrium: The left atrium is normal in size. Right Atrium: The right atrium is normal in size. Mitral Valve: Mild mitral valve leaflet calcification is present. No mitral stenosis is present. Trivial mitral valve regurgitation. Aortic Valve: The aortic valve is tri-leaflet. Mild aortic cusp calcification is noted. Mild aortic valve regurgitation is present. Tricuspid Valve: The tricuspid valve is normal in appearance and function. Pulmonic Valve: The pulmonic valve is normal in appearance and function. Aorta: The aorta is normal. Pericardium: No pericardial effusion. (No Signature Object) Patient: THERESE TENA Study Date: 01/27/2018 Page 2 of 2 11:48 AM [id number]
[2018-01-27] MEDS: METOPROLOL TARTRATE 25 MG TAB PO SCH (20:10)
[2018-01-27] MEDS ORDERED: ATORVASTATIN CALCIUM 40 MG TAB PO SCH (21:00)
--- NOTE | 2018-01-28 05:31 | GCON ---
CARDIAC CONSULTATION DATE OF CONSULTATION: 01/27/2018 CHIEF COMPLAINT: Difficulty speaking. HISTORY OF PRESENT ILLNESS: Hudson Turner is an 87-year-old male who is well known to our office. He has a history of coronary artery disease, status post 2 vessel CABG, chronic renal insufficiency, hyp ertension, hyperlipidemia, obstructive sleep apnea on CPAP, and paroxysmal atrial fibrillation. He a lso has a history of a spontaneous pneumothorax in June at which time his Coumadin was discontinued. His day of admission he woke from a nap and noted difficulty speaking for 5-10 minutes. He ultimatel y presented to the emergency room per his 's request, but his symptoms had resolved by that time. He had a head CT which was negative. A brain MRI, MRA did suggest a 5 mm focus of acute ischemia i n the posterior aspect of the right cerebellar hemisphere. He also had a carotid ultrasound which sh owed moderate plaque bilaterally. The preliminary results of the echocardiogram revealed preserved L V function with an ejection fraction of 65% with a mild inferior hypokinesis, mild aortic insufficien cy and mild aortic and mitral valve calcifications. He has a history of obstructive sleep apnea, currently using CPAP. His has noted over the last few weeks that his apneic events have increased up to 25 events per hour. His device was adjusted 2 days prior to admission. His events did seem to improve but were still elevated. He was also found to have up to 2-3 hours of [place] respirations. PAST MEDICAL HISTORY: Coronary artery disease. Chronic renal insufficiency. Hypertension. Hyperli pidemia. Paroxysmal atrial fibrillation. Obstructive sleep apnea. Spontaneous hemothorax. SOCIAL HISTORY: He denies any ongoing tobacco use or excessive alcohol use. He is currently accompa nied by his . He currently lives in [place] with his . FAMILY HISTORY: Noncontributory. HOME MEDICATIONS: Lipitor 40 mg daily, aspirin 81 mg daily, Systane eye drops p.r.n., metoprolol 25 mg twice daily, lisinopril 30 mg daily. ALLERGIES: No known drug allergies. REVIEW OF SYSTEMS: A 12-point review of systems is negative except for what is stated in the H and P . PHYSICAL EXAMINATION: GENERAL: Patient appears in no acute distress. VITALS: Blood pressure 169/7 7, heart rate 52, oxygen saturation of 94% on room air. Afebrile. EYES: Conjunctivae normal. NECK : No carotid bruits or JVD present. LUNGS: Clear to auscultation. No wheezes, rhonchi, or crackle s auscultated. CARDIAC: Regular rate and rhythm with a 2/6 murmur consistent with aortic sclerosis. ABDOMEN: Soft, nontender, nondistended. Bowel sounds present. EXTREMITIES: Palpable pulses bila terally with mild edema. NEUROLOGIC: Nonfocal. PSYCHIATRIC: Mood and affect appropriate. SKIN: No obvious rashes or ecchymosis identified. LABORATORY: CBC within normal limits except for a platelet count of 149. Sodium 143, potassium 4.3, chloride 110, bicarb 25, BUN 8, creatinine 1.7. Hemoglobin A1c 5.5. Liver function within normal l imits. Troponin negative x1. BNP 332. Total cholesterol 119, LDL 54, HDL 56, triglycerides 47. DIAGNOSTIC STUDIES: Head CT was negative for acute disease. Brain MRI showed a 5 mm focus of acute ischemia in the posterior aspect of the right cerebellar hemisphere. Carotid ultrasound showed 50% s tenosis of the right internal carotid artery. There was less than a 50% stenosis of the left interna l carotid artery. There was moderate plaque seen within the left common carotid artery. EKG shows n ormal sinus rhythm with right bundle branch block and left anterior fascicular block. He has diffuse T-wave flattening. Telemetry revealed normal sinus rhythm without any arrhythmias. ASSESSMENT: The patient is an 87-year-old male with a history of coronary artery disease, chronic re nal insufficiency, hypertension, hyperlipidemia, paroxysmal atrial fibrillation, obstructive sleep ap yaakov and spontaneous hemothorax, who was admitted with a CVA. PLAN: Hudson was admitted with 10-15 minutes of difficulty speaking. A brain MRI does suggest an ac jonathan event in the right cerebellar hemisphere. Carotid ultrasound showed moderate disease without sig nificant obstruction. He does have a history of paroxysmal atrial fibrillation but has remained in n ormal sinus rhythm on telemetry. It is possible that he had paroxysmal atrial fibrillation resulting in CVA. Fortunately, he is not a candidate for full-dose anticoagulation secondary to a history of spontaneous pneumothorax while on Coumadin. He has been seen by Neurology who recommended aspirin an d Plavix therapy. I think this is appropriate and he will do well with this combination. He has bee n on this combination in the past without any associated bleeding issues. I do think it would be hui eficial for Hudson to wear a 30 day event monitor. If he is having evidence of paroxysmal atrial fib rillation he may benefit from antiarrhythmic therapy. He has a history of hyperlipidemia and is on statin therapy. His LDL is well controlled at 54. He also has a history of obstructive sleep apnea, which was well controlled until approximately 2 wee ks ago. His event index increased into the high 20s. His pressures were adjusted 2 days prior to ak s admission. His events seem to be better controlled but still not where they used to be. He will c bev to work with his sleep specialist to improve his treatment. Ultimately, he may need a repeat sleep study to assess for central sleep apnea. /[id number]/MODL
[2018-01-28] MEDS ORDERED: hydrALAZINE 20 MG/ML VIAL IVP PRN (05:43)
[2018-01-28 07:20] VITALS: BP 159/67
[2018-01-28] MEDS: ASPIRIN 81 MG CHEWABLE TAB PO SCH (08:09)
[2018-01-28] MEDS: METOPROLOL TARTRATE 25 MG TAB PO SCH (08:10)
[2018-01-28] MEDS ORDERED: CLOPIDOGREL BISULFATE 75 MG TAB PO SCH (09:00)
[2018-01-28] MEDS ORDERED: LISINOPRIL 10 MG TAB PO SCH (09:00)
[2018-01-28] MEDS ORDERED: ASPIRIN EC 81 MG TAB PO SCH (09:00)
--- NOTE | 2018-01-28 10:00 | HOSPPROG ---
Hospitalist Progress Note Assessment/Plan: Pleasant 87-year-old gentleman with a significant cardiac history for coronary artery disease status post coronary artery bypass graft, hypertension, hyperlipidemia, paroxysmal atrial fibrillation, previously on Coumadin, discontinued after a hemothorax, obstructive sleep apnea on continuous positive airway pressure, chronic kidney disease stage 3, and diastolic dysfunction, who presents to the emergency department with a very short-lived episode of aphasia. 87y male with aphasia. * CVA -acute ischemic -reviewed tele and he has been in sinus -now on Plavix and aspirin therapy -echo shows ef of 75%, atriums normal size -LDL is 54 -A1C is 5.5 -f/u with Dr Mg *right carotid stenosis -f/u with Dr Troy in the OP setting *CKD -close to his baseline -ranges 1.3-1.7 -f/u up w PCP *HLD -statin *diastolic dysfunction -w known CAD -appreciate cards seeing him -further f/u w Cards *Plan: dc home w close f/u Subjective: Hudson feels fine, wants to go home. Objective: Vital Signs Temp Pulse Resp BP Pulse Ox 36.3 C 61 18 159/67 H 94 01/28/18 07:18 01/28/18 08:10 01/28/18 07:18 01/28/18 08:10 01/28/18 07:18 01/27/18 01/28/18 01/29/18 05:59 05:59 05:59 Intake Total 750 400 Balance 750 400 PT 13.9 SEC (12.0-15.0) 01/27/18 05:00 INR 1.05 (0.83-1.16) 01/27/18 05:00 - Physical Exam Constitutional: no apparent distress, appears nourished, not in pain Eyes: PERRL Ears, Nose, Mouth, Throat: hearing normal Cardiovascular: regular rate and rhythym Respiratory: no respiratory distress Skin: warm Musculoskeletal: full muscle strength Neurologic: AAOx3, CN II-XII Intact, No facial droop Psychiatric: interacting appropriately ICD10 Worksheet Patient Problems: Problems Problem Status Onset HTN (hypertension) Acute TIA (transient ischemic attack) Acute Coronary arteriosclerosis Acute Dehydration Acute Pneumonia Acute TIA (transient ischemic attack) Acute chronic disease mgmt/transitional care Acute
--- NOTE | 2018-01-28 10:19 | PDCARPN ---
Cardiology Progress Note Chief Complaint: No complaints Assessment/Plan: Assessment/Plan: Hudson is a 87 y/o M with a history of CAD s/p 2v CABG, HTN, HLP, PAF, Spontaneous pneumothorax, and PEGGY on CPAP who presented with the ER with a acute CVA. He his symptoms resolved in 15 minutes but he did have a acute event by MRI. A carotid US showed moderate disease bilaterally without obstruction. A echo showed preserved LV function without significant valvular disease. Hudson is not on full dose anticoagulation secondary to a spontaneous pneumothorax. He as been monitored on tele and has remained in NSR. He will wear a 30 day event monitor to assess for PAF. If he is having recurrent a.fib a antiarrhythmic could be considered. Plavix was added to his Aspirin therapy. Continue statin therapy. Ok to d/c home from a cardiac standpoint. He will follow up in 6 weeks. 01/28/18 10:12 Subjective: He denies any CP, SOB, or palpitations. He feels great today and wants to go home. Objective: Vital Signs (8 Hrs) Temp Pulse Resp BP Pulse Ox 01/28/18 08:10 61 159/67 H 01/28/18 07:18 36.3 C 61 18 159/67 H 94 01/28/18 05:52 186/74 H 01/28/18 05:13 36.3 C 53 L 16 196/83 H 94 Intake/Output (24 Hrs) 01/27/18 01/28/18 01/29/18 05:59 05:59 05:59 Intake Total 750 400 Balance 750 400 Intake: Oral (ml) 500 400 IV Infused (ml) 250 Other: Weight 89.811 kg Intake Quantity Yes Sufficient Number of Voids Toilet 1 1 1 Number of Stools Toilet 1 Result Diagrams: 01/27/18 00:55 01/27/18 00:55 Telemetry: SB - Physical Exam Constitutional: WDWN Cardiovascular: regular rate and rhythm, no rubs, no gallops, systolic murmur Respiratory: clear to auscultate bilat, no crackles, no wheezes Skin: other (mild edema bilaterally) ICD10 Worksheet Patient Problems: Problems Problem Status Onset HTN (hypertension) Acute TIA (transient ischemic attack) Acute Coronary arteriosclerosis Acute Dehydration Acute Pneumonia Acute TIA (transient ischemic attack) Acute chronic disease [facility]/transitional care Acute
--- NOTE | 2018-01-28 11:01 | ASDISCHSUM ---
Discharge Information Plan Status:Home with No Needs Medically Cleared to Leave: Discharge Date: CM D/C Disposition:Home, Routine, Self-Care ADT D/C Disposition: Projected Discharge Date: Transportation at D/C:Family Discharge Delay Reason: Follow-Up Date: Discharge Slot: Final Diagnosis: Placement Information Patient Contact Information Contact Name:VARUN Relationship: Address:[address] [place] [address] [address] Work Phone: City:[employer] [facility] Phone: State/Zip Code:[place] [address] Email: Financial Information Financial Class:Medicare Primary Plan Desc:MEDICARE OUTPATIENT Primary Plan Number:[id number] Secondary Plan Desc:BARI/LAVELL SUPPLEMENT Secondary Plan Number:[id number] Assessment Information LACE LACE Length of stay for Answers: Less than 1 day current admission Acuity / Level of Answers: No Care: Did the patient have an inpatient admission? Comorbidities - select Answers: Coronary Artery Disease all that apply Mild liver or renal disease Other Notes: AFib # of Emergency department Answers: 1-2 visits in the last 6 months Score: 6 Date Signed: 01/28/2018 11:00 AM Electronically Signed By:Radha Laguna [facility] Progress Note CM Note Note Notes: CM reviewed pt's chart for d/c planning. Pt is an 87y/o male who presented to the ED following a 5 minute episode where he struggled to find his words. Pt has a significant medical hx for CAD, hemothorax, CKD, AFIB and sleep apnea. Pt's reports that at baseline pt is slow to respond and doesn't always finish his sentences. He will receive a close neuro assessment and additional studies. PT/OT have been ordered. CM will follow for recommendations. D/C Plan: TBD Date Signed: 01/27/2018 10:58 AM Electronically Signed By:Radha Laguna Intervention Information Intervention Type:*CESAR-Signed Date of Service:01/27/2018 11:23 AM Patient Type:Observation Staff Member:Angélica Nuno Hours: Discipline: Severity: Comment:
--- NOTE | 2018-01-28 11:24 | NEUROPROG ---
Assessment: [id number] - Neurology Consult: - CC: F/U stroke - Narrative Summary: Pt with prior multiple episodes of encephalopathy from dehydration in the past presented to [facility] ER on 01/26/18 for brief episode of speech difficulty. His reported he had just woken from a nap when he had 5-10 minutes difficulty talking. He had a hemothorax in June 2017 while on coumadin for afib so it was stopped. Pt was on aspirin 81 mg qd and Lipitor 40 mg qd at time of admission. I initially saw the patient on 01/27/18. Neurologic exam showed no focal deficits with NIH SS 0. Pt undergoing stroke evaluation. - HPI: F/U 01/28/18. Pt clinically unchanged. Brain MRI showed acute small right cerebellar stroke. It appears very small so I do not think he needs to go to the ICU for monitoring for posterior fossa edema/hydrocephalus. Brain MRA unremarkable but carotid U/S showed asymptomatic right carotid stenosis of 50%. I will refer to Dr. Tito Troy at clinic f/u visit for routine outpatient monitoring of this finding. TTE showed no cause of stroke. - PMHx: CAD w/stenting, CABG, PNA, hemothorax, HLD, HTN, PEGGY on CPAP, SBO, CKD - SHx: FHx: NC - ROS: Pt denied acute fever, total vision loss, active severe chest pain, respiratory failure, total body severe rash, total bowel/bladder incontinence, psychosis, active seizures, or active bleeding - Labs: 01/27/18- CBC Plt 149L, Coags wnl, CMP Cr 1.7H Gluc 150, LDL 54L - Rads: 01/27/18- Head CT: Senescent features, with no acute intracranial abnormality identified on this unenhanced CT evaluation. 01/27/18- TTE: EF 75%, no cardiac thrombus noted 01/27/18- Brain MRI wo: Underlying atrophy and white matter disease, with a 5 mm focus of acute ischemia involving the posterior aspect of the right cerebellar hemisphere. 01/27/18- Brain MRA: Normal MRA of the [place] of [place] with normal variation 01/27/18- Carotid U/S: Approximate 50% stenosis of the right internal carotid artery at its origin. 2. Less than 50% stenosis of the left internal carotid artery. Moderate plaque also seen within the left common carotid artery. 3. Elevated peak systolic velocity of the right external carotid artery, measuring up to 220 cm/s. - Assessment: 1. R cerebellar stroke causing brief aphasia for 5-10 minutes on 01/26/18: Nonfocal neurologic exam on 01/27/18 with NIH SS 0. Brain MRI wo on 01/27/18 showed acute right cerebellar stroke (small, low risk for causing symptomatic brain edema). TTE showed no cause for stroke. MRA unremarkable on 01/27/18. Recommend adding plavix 75 mg qd to aspirin 81 mg qd (pt on aspirin when he had stroke). He was not able to tolerate anticoagulation in the past so even if this stroke is from paroxysmal afib treatment would not be different. - 2. History of possible afib: Pt not able to tolerate anticoagulation ( hemothorax in July 08 on coumadin) - 3. Asymptomatic Right carotid stenosis: Carotid U/S on 01/27/18 showed 50% right carotid stenosis. Given stroke on 01/27/18 was in posterior circulation, this is an asymptomatic right carotid stenosis. I will offer routine outpatient referral to Dr. Tito Troy to monitor this finding at his clinic otpt f/u visit. - Plan: - Continue aspirin 81 mg qd for stroke prevention - add plavix 75 mg qd for stroke prevention (pt failed aspirin alone (TIA on this) and failed anticoagulation (hemothorax on coumadin in July 08)), family counseled this increases bleed risk but they accepted risk - Blood pressure goal < 220/120 x 24 hours - LDL goal < 70 (54), continue statin - H1AC goal < 7.0 - PT/OT/Speech to determine rehab needs - No further inpatient neurology w/u needed, neurology will sign off - F/U in neurology clinic 1-5 weeks after hospital discharge - 35 min spent with patient, majority of time spent counseling on stroke prevention strategies Objective: Vital Signs Temp Pulse Resp BP Pulse Ox 36.3 C 61 18 159/67 H 94 01/28/18 07:18 01/28/18 08:10 01/28/18 07:18 01/28/18 08:10 01/28/18 07:18 01/27/18 01/28/18 01/29/18 05:59 05:59 05:59 Intake Total 750 400 Balance 750 400 PT 13.9 SEC (12.0-15.0) 01/27/18 05:00 INR 1.05 (0.83-1.16) 01/27/18 05:00 Allergies/Adverse Reactions: No Known Allergies Allergy (Verified 01/27/18 00:29)
--- NOTE | 2018-01-28 13:28 | GDS ---
DISCHARGE DIAGNOSES: 1. Right cerebellar stroke, causing brief aphasia. 2. History of possible atrial fibrillation. 3. Right carotid stenosis, asymptomatic. 4. Chronic kidney disease. 5. Hyperlipidemia. 6. Diastolic dysfunction. CONSULTATIONS: 1. Dr. Babar Mg. 2. NISHANT Sullivan with Cardiology. HISTORY: Briefly, the patient is an 87-year-old gentleman with a significant cardiac history for cor onary artery disease, status post bypass grafting, hypertension, hyperlipidemia, paroxysmal atrial fi brillation, who presented with aphasia. He has been on Coumadin in the past for paroxysmal atrial fi brillation but developed a hemothorax and subsequently was discontinued. He came to the ER, and his aphasia had resolved. He was seen and evaluated by Dr. Mg. He will be on Plavix, as well as aspir in therapy. HOSPITAL COURSE: 1. Right cerebellar stroke, causing brief aphasia. His brain MRI without contrast showed an acute r ight cerebellar stroke, small, which was noted to be low risk for causing symptomatic brain edema. H is echocardiogram did not show any clear-cut etiology of a stroke. His MRA was unremarkable. Plavix has been added to aspirin therapy. He was not able to tolerate anticoagulation due to having a hemo thorax. 2. History of possible atrial fibrillation. He will follow up with Cardiology. He will get a 30-da y Holter monitor for followup. 3. Right carotid stenosis. He is asymptomatic. His carotid ultrasound on February 27 showed 50% righ t carotid stenosis. Reviewed this with Dr. Mg. Given that the stroke was in the posterior circulat ion, this is an asymptomatic right carotid stenosis. He will get an outpatient referral to Dr. Troy . 4. Chronic kidney disease. He is close to his baseline. He ranges 1.3-1.7, so he is at the high le lindy of this. Recommending that he get this re-evaluated by his primary care provider. 5. Hyperlipidemia, on statin therapy. 6. Diastolic dysfunction. Further followup with Cardiology. DISCHARGE CONDITION: Stable. Blood pressure is 159/67, heart rate of 61, respiratory rate of 18, O2 sats on room air 94%. Temperature is 36.3 Celsius. DISCHARGE MEDICATIONS: Please see the EMR. DISCHARGE INSTRUCTIONS: 1. To follow up with Dr. Mg. 2. He will be getting a 30-day event monitor to rule out atrial fibrillation. 3. To follow up with Dr. Dawson, his primary care doctor, to get his kidney functions checked. Copy requested to: Dr. Samir Troy /[id number]/[id number]
== END 2018-01-28 11:42 | disposition home or self-care (01) ==
LOC: F3N 03:06
PROVIDERS: ADMIT Family Medicine; ATTEND Internal Medicine
DX: I63.9 Cerebral infarction, unspecified (principal); E86.9 Volume depletion, unspecified; R29.700 NIHSS score 0; I65.21 Occlusion and stenosis of right carotid artery; N18.3 Chronic kidney disease, stage 3 (moderate); E78.5 Hyperlipidemia, unspecified; I13.0 Hypertensive heart and chronic kidney disease with heart failure and stage 1 through stage 4 chronic kidney disease, or unspecified chronic kidney disease; I50.30 Unspecified diastolic (congestive) heart failure; G47.33 Obstructive sleep apnea (adult) (pediatric); I25.10 Atherosclerotic heart disease of native coronary artery without angina pectoris; Z79.82 Long term (current) use of aspirin; Z95.1 Presence of aortocoronary bypass graft; Z95.5 Presence of coronary angioplasty implant and graft
CPT/HCPCS: 70450; 70544; 70551; 71045; 92523; 93005; 93306; 93880; 97161; 97165; 99285; G0378; G8978; G8979; G8980; G8987; G8988; G8989; G9165; G9166; G9167; J0360; 84484-PO

== ENCOUNTER → 2018-02-19 | Outpatient (CLI) | payer OTHER, MEDICARE | LOC: FCPNEURO 20:00 | PROVIDERS: ATTEND Psychiatry & Neurology Sleep Medicine | DX: G47.33 Obstructive sleep apnea (adult) (pediatric) (principal) ==